=== PATIENT | female | born 1960 | race Caucasian/White ===

== ENCOUNTER → 2018-05-12 | Day surgery (SDC) | payer OTHER ==
[~2018-05-12] MED LIST: CIPRO500 MG PO; DEXILANT60 MG PO; DICYCLOMINE HCL20 MG PO; FENTANYL CITRATE/PF 100MCG/2 ML INJ ONE; LOPREEZA; MELOXICAM15 MG PO; METRONIDAZOLE500 MG PO; MIDAZOLAM HCL 2 MG/2 ML VIAL ONE; NORCO 10-325 T1 EACH PO; OR PHACO EYE KIT ONE; PANTOPRAZOLE SO40 MG PO; PREOP PHACO EYE KIT ONE; TOBRAMYCIN/DEXAMETHASONE(OPTH) 3.5 GM TUBE ONE; ULTRAM50 MG PO; VICODIN PO; [UNRECOGNIZED DRUG - MIXTURE] PO; [UNRECOGNIZED DRUG - OTHER]; [UNRECOGNIZED DRUG - OTHER]; [UNRECOGNIZED DRUG - OTHER] PO; [UNRECOGNIZED DRUG - REMARK]
[2018-05-12 12:15] VITALS: BP 112/62
== END | disposition home or self-care (01) ==
LOC: OR 09:10
PROVIDERS: ATTEND Ophthalmology
DX: H25.11 Age-related nuclear cataract, right eye (principal); J30.9 Allergic rhinitis, unspecified; K21.9 Gastro-esophageal reflux disease without esophagitis; Z88.2 Allergy status to sulfonamides
CPT/HCPCS: 66984; J2250; V2632

== ENCOUNTER → 2019-02-10 | Outpatient (CLI) | payer OTHER ==
[~2019-02-10] MED LIST changes: -FENTANYL CITRATE/PF 100MCG/2 ML INJ ONE; -MIDAZOLAM HCL 2 MG/2 ML VIAL ONE; -OR PHACO EYE KIT ONE; -PREOP PHACO EYE KIT ONE; -TOBRAMYCIN/DEXAMETHASONE(OPTH) 3.5 GM TUBE ONE
--- NOTE | 2019-02-10 17:20 | Diagnostic Imaging Report ---
Maxillofacial sinus CT without IV contrast History:Headache, pain, red eyes with inflammation Comparison studies: None Technique: Axial images were obtained through the maxillofacial region. Coronal and sagittal images reconstructed from the axial data. Dose modulation, iterative reconstruction, and/or weight based adjustment of the mA/kV was utilized to reduce the radiation dose to as low as reasonably achievable. Radiation dose: Total DLP: 288 mGy*cm. Estimated effective dose: DLP x 0.015 Intravenous contrast: None Findings: Evaluation the soft tissues is limited in the absence of IV contrast. Paranasal sinuses: Sinuses are clear. The bilateral ostiomeatal units, frontoethmoidal recesses and sphenoethmoidal recesses are patent. Nasal cavity: Nonspecific reactive nasal turbinate hypertrophy. The nasal septum is deviated to the left and there is a leftward projecting osseous spur which abuts the inferior and middle turbinates. Soft tissues: Partially imaged coarsely calcified left suprahyoid jugular chain (level IIA) measures up to 11 mm and is nonspecific but may be sequela of chronic granulomatous disease (cannot further evaluate on this exam). Dedicated soft tissue neck CT with IV contrast may further evaluate as clinically warranted. No mass or inflammatory changes identified. Bones: No fractures. Incidental nonaggressive-appearing partially imaged lucent lucent right frontal calvarium lesion measures up to at least 6 mm, possibly hemangioma. Orbits: Globes are intact. There are lens replacements for previous cataract surgery. Extraocular muscles appear symmetric in size and density. No intraconal or extraconal mass. Incidental findings: Facet arthrosis on the left at C2-C3. IMPRESSION: 1. Lens replacements for previous cataract surgery. No other gross orbital abnormalities. 2. Clear paranasal sinuses with patent sinus drainage pathways. 3. Nonspecific reactive nasal turbinate hypertrophy. 4. Incidental nonspecific partially imaged calcified left cervical lymph node. Signed by: Dr. Antonio Benedict M.D. on 02/10/2019 5:17 PM
== END ==
LOC: CT 15:44
PROVIDERS: ATTEND Ophthalmology
DX: R51 Headache (principal)
CPT/HCPCS: 70486

== ENCOUNTER → 2019-03-09 | Outpatient (CLI) | payer OTHER ==
--- NOTE | 2019-03-10 10:48 | Diagnostic Imaging Report ---
History: Cervical lesion Comparison studies: Maxillofacial CT 02/10/2019. Technique: Axial, coronal and sagittal images from the skull base to the thoracic inlet. Coronal and sagittal images reconstructed from the axial data. Dose modulation, iterative reconstruction, and/or weight based adjustment of the mA/kV was utilized to reduce the radiation dose to as low as reasonably achievable. Intravenous contrast: 150 cc of Isovue-370. Findings: Soft tissues and lymph nodes: Coarsely calcified 11 mm x 18 mm left suprahyoid jugular chain nodule, most compatible with calcified lymph node is again identified. No other radiographically significant cervical lymphadenopathy. Pharynx and larynx: No abnormalities. Specifically, no mass or abnormal enhancement. Vessels: Patent carotid and vertebral arteries. Minimal nonstenotic calcified plaque at the left carotid bulb. Internal jugular veins are patent bilaterally. Glands (thyroid, parotid and submandibular): Normal in size and symmetric. No masses. Orbits: Lens replacements for previous cataract surgery. No other abnormalities. Paranasal sinuses: Clear. Nasal cavity: Leftward nasal septal deviation with nonspecific reactive diffuse nasal turbinate hypertrophy, similar to previous exam. Temporal bones: No gross abnormalities. Skull base and facial bones: Intact. Cervical spine: Mild multilevel disc degeneration, greatest at C5-C6. Minimal retrolisthesis of C5 on C6 with associated disc osteophyte complex results in mild canal stenosis. Facet arthrosis on the left from C2 to C5 uncovertebral arthrosis at C5-C6 is not result significant canal stenosis. IMPRESSION: 1. Nonspecific coarse calcified left suprahyoid left level IIA lymph node, possibly sequela of prior granulomatous disease. 2. No other mass or cervical lymphadenopathy. Signed by: Dr. Antonio Benedict M.D. on 03/10/2019 10:45 AM
== END ==
LOC: CT 13:49
PROVIDERS: ATTEND Family Medicine
DX: N88.9 Noninflammatory disorder of cervix uteri, unspecified (principal); I65.22 Occlusion and stenosis of left carotid artery
CPT/HCPCS: 70491; 93880

== ENCOUNTER → 2019-04-29 | Outpatient (CLI) | payer OTHER ==
[~2019-04-29] MED LIST changes: +IOPAMIDOL 370 MG/ML 200 ML INFUS..BTL INJ ONE; +SODIUM CHLORIDE 0.9% 50ML 50 ML ONE
[2019-04-29 08:48] LABS: BLOOD UREA NITROGEN 12 mg/dL (7-26); BUN/CREATININE RATIO 15 (6-25); EST GLOMERULAR FILTRATION RATE > 60 ML/MIN (60-)
--- NOTE | 2019-04-29 10:01 | Diagnostic Imaging Report ---
ADDENDUM #1 RADIATION DOSE: Total DLP: 493.2 mGy*cm. Dose modulation, iterative reconstruction, and/or weight based adjustment of the mA/kV was utilized to reduce the radiation dose to as low as reasonably achievable. Signed by: Young Beal MD on 04/29/2019 2:45 PM ORIGINAL REPORT EXAM: CT Chest WITH intravenous contrast 04/29/2019 8:00 AM INDICATION: Bronchitis COMPARISON: None TECHNIQUE: Chest was scanned utilizing a multidetector helical scanner from the lung apex through the level of the adrenal glands after administration of IV contrast. Coronal and sagittal reformations were obtained. Routine protocol was performed. IV CONTRAST: 100mL Isovue 370 RADIATION DOSE: Total DLP: mGy*cm. Dose modulation, iterative reconstruction, and/or weight based adjustment of the mA/kV was utilized to reduce the radiation dose to as low as reasonably achievable. COMPLICATIONS: None FINDINGS: LINES/ TUBES: None. LUNGS AND AIRWAYS: The central airways are patent. Minimal biapical pleural parenchymal thickening/scarring. No focal consolidation. Minimal bibasilar subsegmental atelectasis. No bronchial wall thickening or bronchiectasis. No suspicious pulmonary nodules. PLEURA: The pleural spaces are clear. HEART AND MEDIASTINUM: Incompletely visualized thyroid gland appears unremarkable. No supraclavicular, subpectoral, axillary, mediastinal, or hilar lymphadenopathy. The heart is not enlarged. No pericardial effusion. This study is not specifically tailored for evaluation for pulmonary embolism, however there is no filling defect to suggest pulmonary embolism to the segmental level. UPPER ABDOMEN: Limited contrast-enhanced images of the upper abdomen demonstrate hepatic steatosis without focal mass lesions and no focal abnormality of the partially visualized spleen, pancreas, adrenals, or upper kidneys. BONES: No acute osseous injury. No suspicious lytic or blastic lesions. SOFT TISSUES: Unremarkable. IMPRESSION: No consolidation, bronchial wall thickening, or bronchiectasis. Hepatic steatosis. Signed by: Young Beal MD on 04/29/2019 9:57 AM
== END ==
LOC: CT 07:53
PROVIDERS: ATTEND Family Medicine
DX: J20.9 Acute bronchitis, unspecified (principal)
CPT/HCPCS: 36415; 71260; 82565; 84520; Q9967

== ENCOUNTER → 2020-01-03 | Day surgery (SDC) | payer OTHER ==
[~2020-01-03] MED LIST changes: +AMABELZ 1 MG-01 EACH PO; +FENTANYL CITRATE/PF 100MCG/2 ML INJ ONE; +GLUCAGON FOR INJ 1 MG VIAL ONE; +GLYCOPYRROLATE INJ 0.2 MG/ML VIAL ONE; +HYOSCYAMINE 0.125 MG TAB ONE; -IOPAMIDOL 370 MG/ML 200 ML INFUS..BTL INJ ONE; +MELOXICAM7.5 MG PO; +METHOCARBAMOL750 MG PO; +MIDAZOLAM HCL 2 MG/2 ML VIAL ONE; +PROPOFOL IV EMULSION 10 MG/ML 20 ML VIAL ONE; -SODIUM CHLORIDE 0.9% 50ML 50 ML ONE; +VITAMIN D3 PO
[2020-01-03 14:55] VITALS: BP 97/68
--- NOTE | 2020-01-03 15:01 | Operative Report ---
DATE OF PROCEDURE: 01/03/2020 SURGEON: Eris Magana MD PROCEDURE: EGD with polypectomy and biopsies and colonoscopy. INDICATION FOR GED: Dyspepsia. INDICATIONS FOR COLONOSCOPY: Surveillance colonoscopy, personal history of colon polyps. MEDICATIONS: The patient was done under MAC. Please see anesthesiologist's note. PROCEDURE IN DETAIL: With the patient in left lateral decubitus position, a flexible fiberoptic Olympus gastroscope was introduced into the esophagus under direct visualization without any difficulty. The esophagus appeared to be within normal limits. The scope was then advanced with ease into the stomach. Mucosa overlying the antrum and the body revealed some patchy erythema and frse-ty-lvyycozg edema, and biopsies were obtained sent to stain for H. pylori. Two minute hyperplastic-appearing polyps were partially excised with cold biopsy forceps on the body of the stomach. Pylorus appeared to be of normal contour and shape. It was intubated with ease and the scope was advanced all the way to the second portion of the duodenum. The scope was then withdrawn slowly and biopsies were obtained from the proximal second portion and the duodenal bulb. The scope was then withdrawn back into the stomach and retroflexed and mucosa overlying the fundus and the cardia grossly appeared to be within normal limits. The scope was then straightened out. It was subsequently withdrawn. The patient tolerated the procedure well. IMPRESSION: 1. Normal esophagus. 2. Gastritis, biopsied. Biopsies sent to stain for Helicobacter pylori. 3. Gastric polyps, hyperplastic-appearing. Body of stomach, partially excised with the cold biopsy forceps. 4. Rule out sprue. PLAN: Follow up histology. Continue Dexilant 60 mg one p.o. q.a.m. a.c. The patient was then turned around after adequate lubrication of the anal canal and flexible fiberoptic Olympus colonoscope was inserted into the rectum with ease and advanced all the way to the cecum. It was then withdrawn slowly. Mucosa overlying the cecum, ascending colon, transverse colon, descending colon appeared to be within normal limits. Diverticular disease was noted in the sigmoid colon. The rectum grossly appeared to be within normal limits. The scope was then retroflexed into the distal rectum and small internal hemorrhoids were noted, none of which was actively bleeding. The scope was then straightened out. It was subsequently withdrawn. The patient tolerated the procedure well. IMPRESSION: 1. Diverticulosis. 2. Internal hemorrhoids, none actively bleeding. PLAN: Initiate high-fiber low-fat diet. Initiate high-fiber supplement. The patient might benefit from a followup colonoscopy in 3 years. MD CALDERON Avalos/ERNESTO /[id number] cc: Rayshawn Chang DO
--- OUTSIDE RECORDS SUMMARY | 2020-01-04 09:06 | XMS REPORT | Summary of Care ---
Author Author ASHLEY Kevin, [facility] [place] Organization Unknown Address Unknown Phone Unavailable Care Team Providers Care Director Trial Name Role Phone TAYLOR RAMIREZ M.D. Unavailable Unavailable Taylor Ramirez MD Unavailable Unavailable Unavailable Unavailable Functional Status Name Dates Details Functional status health issues are not documented Status: Name Dates Details Cognitive status health issues are not d ocumented Status: Problems Name Dates Details Left foot pain (729.5, M79.672) Status: Active Limb pain (729.5, M79.609) Status: Active Metatarsalgia of right foot (726.70, M77 .41) Status: Active Metatarsalgia of both feet (726.70, M77. 41) Status: Active Sprain of anterior talofibular ligament of left ankle, initial encounter (845.09, S93.492A) Status: Active Medications Name Dates Details Meloxicam 15 MG Oral Tablet TAKE 1 TABLET BY MOUTH DAILY Quantity: 90 ASHLEY Kevin, TAYLOR * Start : 07-Dec-2018 Active methylPREDNISolone 4 MG Oral Tablet USE DIRECTED. * Quantity: 21 Refills: 0 ASHLEY Kevin, TAYLOR * Start : 07-Dec-2018 Active Allergies and Adverse Reactions Name Dates Details Allergy history not documented Status: Procedures Procedure Dates Details MR Ankle wo contrast [id number] Date: 03-Feb-2019 Immunization Name Dates Details Immunizations not documented Social History Name Dates Details Unknown if ever smoked Vital Signs Date Test Result Details No Known Vitals to report Results Date Description Value Details Results not documented Plan of Care Name Dates Details Planned Observations Planned Goals not documented Planned Encounters Appointment; TAYLOR RAMIREZ M.D. On: 15-Feb-2019 11:00 Interventions Provided Labs/Procedures/Imaging* MR Ankle wo contrast [id number]; To Be Done: 03 Feb 2019 Instructions Name Dates Details Instructions not documented Encounters Appointment; TAYLOR RAMIREZ M.D. Encounter Diagnosis: Problem not documented On: 07-Dec-2018 9:30 Appointment; TAYLOR RAMIREZ M.D. Encounter Diagnosis: Problem not documented On: 18-Jan-2019 10:15 Appointment; TAYLOR RAMIREZ M.D. Encounter Diagnosis: Problem not documented On: 03-Feb-2019 14:00
--- OUTSIDE RECORDS SUMMARY | 2020-01-04 09:07 | XMS REPORT ---
Author Author [facility] t Organization [facility] Address [address] [place] [address] Phone Unavailable Care Team Providers Care Hand Router Operator Name Role Phone Shantelle Montaño Attphys EVE GAYTAN Attphys Unavailable TAYLOR WELSH M.D. Attphys Unavailable Aura Welsh Attphys BERNARD GODFREY Attphys Unavailable Miesha Davis Attphys Justice Robles Attphys Lou Muse Attphys Chauncey Martinez Attphys JAYE MONSIVAIS Attphys Unavailable David Norris Santos Attphys Omid Sorto Attphys Shantelle Montaño Admphys Justice Robles Admphys David Norris Santos Admphys Payers Payer Name Policy Type Policy Number Effective Date Expiration Date S ource Problems Condition Name Condition Details Condition Category Status Onset Date Resolution Date Last Treatment Date Treating Clinician Comments Source Left foot pain Left foot pain Problem Active [facility] Limb pain Limb pain Problem Active [facility] Metatarsalgia of both feet Metatarsalgia of both feet Problem Active [facility] Sprain of anterior talofibular ligament of left ankle, initial encounter Sprain of anterior talofibular ligament of left ankle, initial encounter Problem Active [facility] Left ankle pain Left ankle pain Problem Active [facility] Allergies, Adverse Reactions, Alerts Allergy Name Allergy Type Status Severity Reaction(s) Onset Date Inacti ve Date Treating Clinician Comments Source Sulfa (Sulfonamide Antibiotics) DA Active U 2017-10-09 00 :00:00 [facility] Medications Ordered Medication Name Filled Medication Name Start Date Stop Da te Current Medication? Ordering Clinician Indication Dosage Frequency Signature (SIG) Comments Components Source Meloxicam 15 MG Oral Tablet Meloxicam 15 MG Oral Tablet 2018-12-07 00:00:00 Yes TAYLOR WELSH M.D. TAKE 1 TABLET BY MOUTH DILMA Y [facility] methylPREDNISolone 4 MG Oral Tablet methylPREDNISolone 4 MG Oral Tablet 2018-12-07 00:00:00 Yes TAYLOR WELSH M.D. USE DIRECTED. [facility] Procedures Procedure Date / Time Performed Performing Clinician [facility] e MR Ankle wo contrast [id number] 2019-02-03 00:00:00 U [facility] [U] XR FOOT MIN 3 VWS BILATERAL 2018-12-07 00:00:00 [facility] Encounters Start Date/Time End Date/Time Encounter Type Admission Type Attendi [facility] Care Department Encounter ID Source 2019-07-21 05:30:11 2019-07-21 08:33:00 Outpatient Brendan Montaño [id number] [facility] 2019-02-15 11:00:00 2019-02-15 11:00:00 Appointment; RAVI WELSH M.D. GAUVAIN, TAGGART, M.D. [facility] Orthopedics [facility] [id number] [facility] 2019-02-10 12:03:00 2019-02-10 23:59:00 Outpatient Taylor Welsh [facility] [id number] [facility] [place] 2019-02-03 14:00:00 2019-02-03 14:00:00 Appointment; RAVI WELSH M.D. GAUVAIN, TAGGART, M.D. [facility] Orthopedics [facility] [id number] [facility] 2019-01-28 11:51:21 2019-01-28 14:09:00 Outpatient Dea Davis [facility] [id number] [facility] 2019-01-28 11:51:00 2019-01-28 11:51:00 Emergency E [facility]BL [facility]BL [id number] [facility] 2019-01-18 10:15:00 2019-01-18 10:15:00 Appointment; RAVI WELSH M.D. GAUVAIN, TAGGART, M.D. [facility] [id number] [facility] 2018-11-27 08:00:00 2018-12-26 23:59:00 Outpatient Clarissa Robles [id number] [facility] 2018-12-07 09:30:00 2018-12-07 09:30:00 Appointment; RAVI WELSH M.D. GAUVAIN, TAGGART, M.D. [facility] Orthopedics [facility] [id number] [facility] 2018-10-27 08:00:00 2018-11-25 23:59:00 Outpatient Clarissa Robles [id number] [facility] 2018-09-25 08:00:00 2018-10-25 23:59:00 Outpatient Clarissa Robles [id number] [facility] [place] 2018-09-22 05:25:00 2018-09-24 16:56:00 Outpatient RoblesHardeep cruz [facility] [id number] [facility] 2018-09-22 05:25:00 2018-09-24 16:56:00 Outpatient Hardeep Robles [facility] [id number] [facility] 2018-04-27 13:00:00 2018-05-26 23:59:00 Outpatient Clarissa Robles [id number] [facility] 2018-05-18 11:13:00 2018-05-19 23:59:59 Outpatient MHMIS REKHA MHMISCHER [id number] [facility] 2018-04-02 05:27:00 2018-04-02 10:05:00 Outpatient Hardeep Robles [facility] [id number] [facility] 2018-04-01 22:05:00 2018-04-01 23:59:00 Outpatient Lou Carrion [facility] [id number] [facility] 2018-02-08 21:11:00 2018-02-08 23:59:00 Outpatient Hardeep Robles [facility] MHSE [id number] [facility] 2017-11-03 11:45:00 2017-11-03 15:58:00 Outpatient Myles Martinez [facility] [id number] [facility] 2017-07-18 15:50:00 2017-08-16 23:59:00 Outpatient Clarissa Robles [id number] [facility] 2017-06-04 15:59:00 2017-07-03 23:59:00 Outpatient Clarissa Robles [id number] [facility] 2017-04-28 09:00:00 2017-05-27 23:59:00 Outpatient Robles, V ictor Van [id number] [facility] 2017-04-29 06:46:00 2017-04-30 14:30:00 Outpatient JrSantosflori [facility] [id number] [facility] 2017-03-28 16:00:00 2017-04-26 23:59:00 Outpatient Robles, V ictor Van [id number] [facility] 2017-02-24 16:00:00 2017-03-25 23:59:00 Outpatient Robles, V ictor Van [id number] [facility] 2017-01-15 13:30:00 2017-02-13 23:59:00 Outpatient Robles, V ictor Van [id number] [facility] 2015-12-27 10:40:00 2015-12-27 13:20:00 Outpatient Shania Sorto [facility] [id number] [facility] 2015-07-21 08:00:00 2015-08-19 23:59:00 Outpatient Robles, V ictor Van [id number] [facility] 2015-06-19 08:00:00 2015-07-18 23:59:00 Outpatient Robles, V ictor Van [id number] [facility] liu 2015-05-19 08:00:00 2015-06-17 23:59:00 Outpatient Clarissa Robles [id number] [facility] 2015-05-02 11:30:00 2015-05-17 10:05:00 Outpatient Clarissa Robles [id number] [facility] liu 2015 06:55:00 2015-04-28 18:00:00 Outpatient Hardeep Robles [facility] [id number] [facility] Results Test Description Test Time Test Comments Results Result Comments Source CT CHEST W 2019-04-29 09:51:00 [place] [address] Patient Name: LAVONNE BURGOS MR #: [id number] : 1960 Age/Sex: 59/F Req #: [id number] Adm Physician: Ordered by: EEV GAYTAN DO Report #: [id number] Location: CT Room/Bed: Procedure: [id number] CT/CT CHEST W Exam Date: 04/29/19 Exam Time: 0900 REPORT STATUS: Signed ADDENDUM #1 RADIATION DOSE: Total DLP: 493.2 mGy*cm. Dose modulation, iterative reconstruction, and/or weight based adjustment of the mA/kV was utilized to reduce the radiation dose to as low as reasonably achievable. Signed by: Crystal Herring MD on 04/29/2019 2:45 PM ORIGINAL REPORT EXAM: CT Chest WITH intravenous contrast 04/29/2019 8:00 AM INDICATION: Bronchitis COMPARISON: None TECHNIQUE: Chest was scanned utilizing a multidetector helical scanner from the lung apex through the level of the adrenal glands after administration of IV contrast. Coronal and sagittal reformations were obtained. Routine protocol was performed. IV CONTRAST: 100mL Isovue 370 RADIATION DOSE: Total DLP: mGy*cm. Dose modulation, iterative reconstruction, and/or weight based adjustment of the mA/kV was utilized to reduce the radiation dose to as low as reasonably achievable. COMPLICATIONS: None FINDINGS: LINES/ TUBES: None. LUNGS AND AIRWAYS: The central airways are patent. Minimal biapical pleural parenchymal thickening/scarring. No focal consolidation. Minimal bibasilar subsegmental atelectasis. No bronchial wall thickening or bronchiectasis. No suspicious pulmonary nodules. PLEURA: The pleural spaces are clear. HEART AND MEDIASTINUM: Incompletely visualized thyroid gland appears unremarkable. No supraclavicular, subpectoral, axillary, mediastinal, or hilar lymphadenopathy. The heart is not enlarged. No pericardial effusion. This study is not specifically tailored for evaluation for pulmonary embolism, however there is no filling defect to suggest pulmonary embolism to the segmental level. UPPER ABDOMEN: Limited contrast-enhanced images of the upper abdomen demonstrate hepatic steatosis without focal mass lesions and no focal abnor mality of the partially visualized spleen, pancreas, adrenals, or upper kidneys. BONES: No acute osseous injury. No suspicious lytic or blastic lesions. SOFT TISSUES: Unremarkable. IMPRESSION: No consolidation, bronchial wall thickening, or bronchiectasis. Hepatic steatosis. Signed by: Crystal Herring MD on 04/29/2019 9:57 AM Dictated By: CRYSTAL HERRING MD 1445 Transcribed By: JOYCE on 04/29/19 2864 COPY TO: EVE GAYTNA DO CT SOFT TISSUE NECK W 2019-03-10 10:23:00 [facility] [address] [address] Patient Name: LAVONNE BURGOS MR #: [id number] : 1960 Age/Sex: 58/F Req #: [id number] Adm Physician: Ordered by: EVE GAYTAN DO Report #: [id number] Location: CT Room/Bed: Procedure: [id number] CT/CT SOFT TISSUE NECK W Exam Date: 03/09/19 Exam Time: 1430 REPORT STATUS: Signed History: Cervical lesion Comparison studies: Maxillofacial CT 02/10/2019. Technique: Axial, coronal and sagittal images from the skull base to the thoracic inlet. Coronal and sagittal images reconstructed from the axial data. Dose modulation, iterative reconstruction, and/or weight based adjustment of the mA/kV was utilized to reduce the radiation dose to as low as reasonably achievable. Intravenous contrast: 150 cc of Isovue-370. Findings: Soft tissues and lymph nodes: Coarsely calcified 11 mm x 18 mm left suprahyoid jugular chain nodule, most compatible with calcified lymph node is again identified. No other radi ographically significant cervical lymphadenopathy. Pharynx and larynx: No abnormalities. Specifically, no mass or abnormal enhancement. Vessels: Patent carotid and vertebral arteries. Minimal nonstenotic calcified plaque at the left carotid bulb. Internal jugular veins are patent bilaterally. Glands (thyroid, parotid and submandibular): Normal in size and symmetric. No masses. Orbits: Lens replacements for previous cataract surgery. No other abnormalities. Paranasal sinuses: Clear. Nasal cavity: Leftward nasal septal deviation with nonspecific reactive diffuse nasal turbinate hypertrophy, similar to previous exam. Temporal bones: No gross abnormalities. Skull base and facial bones: Intact. Cervical spine: Mild multilevel disc degeneration, greatest at C5-C6. Minimal retrolisthesis of C5 on C6 with associated disc osteophyte complex results in mild canal stenosis. Facet arthrosis on the left from C2 to C5 uncovertebral arthrosis at C5-C6 is not result significant canal stenosis. IMPRESSION: 1. Nonspecific coarse calcified left suprahyoid left level IIA lymph node, possibly sequela of prior granulomatous disease. 2. No other mass or cervical lymphadenopathy. Signed by: Dr. Herrera Ramirez M.D. on 03/10/2019 10:45 AM Dictated By: HERRERA RAMIREZ MD 44 Transcribed By: JOYCE on 03/10/191044 COPY TO: EVE GAYTAN DO CT MAXIO FAC/PARANAS WO 2019-02-10 17:05:00 [place] [address] Patient Name: LAVONNE BURGOS MR #: [id number] : 1960 Age/Sex: 58/F Req #: [id number] Adm Physician: Ordered by: BERNARD GODFREY MD Report #: [id number] Location: CT Room/Bed: Procedure: [id number] CT/CT MAXIO FAC/PARANAS WO Exam Date: Exam Time: REPORT STATUS: Signed Maxillofacial sinus CT without IV contrast History:Headache, pain, red eyes with inflammation Comparison studies: None Technique: Axial images were obtained through the maxillofacial region. Coronal and sagittal images reconstructed from the axial data. Dose modulation, iterative reconstruction, and/or weight based adjustment of the mA/kV was utilized to reduce the radiation dose to as low as reasonably achievable. Radiation dose: Total DLP: 288 mGy*cm. Estimated effective dose: DLP x 0.015 Intravenous contrast: None Findings: Evaluation the soft tissues is limited in the absence of IV contrast. Paranasal sinuses: Sinuses are clear. The bilateral ostiomeatal units, frontoethmoidal recesses and sphenoethmoidal recesses are patent. Nasal cavity: Nonspecific reactive nasal turbinate hypertrophy. The nasal septum is deviated to the left and there is a leftward projecting osseous spur which abuts the inferior and middle turbinates. Soft tissues: Partially imaged coarsely calcified left suprahyoid jugular chain (level IIA) measures up to 11 mm and is nonspecific but may be sequela of chronic granulomatous disease (cannot further evaluate on this exam). Dedicated soft tissue neck CT with IV contrast may further evaluate as clinically warranted. No mass or inflammatory changes identified. Bones: No fractures. Incidental nonaggressive-appearing partially imaged lucent lucent right frontal calvarium lesion measures up to at least 6 mm, possibly hemangioma. Orbits: Globes are intact. There are lens replacements for previous cataract surgery. Extraocular muscles appear symmetric in size and density. No intraconal or extraconal mass. Incidental findings: Facet arthrosis on the left at C2- C3. IMPRESSION: 1. Lens replacements for previous cataract surgery. No other gross orbital abnormalities. 2. Clear paranasal sinuses with patent sinus drainage pathways. 3. Nonspecific reactive nasal turbinate hypertrophy. 4. Incidental nonspecific partially imaged calcified left cervical lymph node. Signed by: Dr. Herrera Ramirez M.D. on 02/10/2019 5:17 PM Dictated By: HERRERA RAMIREZ MD 16 Transcribed By: JOYCE on 02/10/191716 COPY TO: BERNARD GODFREY MD MR Ankle wo contrast [id number] 2019-02-10 13:01:00 E XAMINATION: MR left ankle without contrastHISTORY: S93.492A Sprain of other ligament of left ankle, initial encounter;lateral left ankle pain x 1 monthCOMPARISON: Radiographs dated 01/28/2019 are reviewed.TECHNIQUE: Multiplanar, multisequence magnetic resonance imaging of the leftankle and hindfoot is performed with an extremity coil without contrast. AnMR-compatible marker is placed at the site of the patient's pain.FINDINGS:Ligaments:Lateral:AITFL and PITFL: The anterior/inferior tibiofibular and posterior/inferiortibiofibular syndesmotic ligaments are intact.ATFL: The anterior talofibular ligament is intact.CFL: The calcaneofibular ligament is intact.Medial:Deltoid complex: The superficial and deep components of the deltoid ligamentcomplex including the tibiospring ligament and superomedial component of thecalcaneonavicular spring ligament are within normal limits. Tendons:Medial flexor: Fluid is noted within the posterior tibialis tendon sheathwithout intratendinous abnormality. Otherwise, the remaining medial flexortendons are within normal limits.Peroneal: The lateral peroneal tendons are within normal limits.Extensor: The anterior ankle extensor tendons are within normal limits.Achilles tendon: The Achilles tendon is within normal limits.Plantar fascia: Within normal limits.Muscles: There is normal signal intensity and muscle bulk of the intrinsic footmusculature.Cartilage: There is no focal chondrosis or subchondral marrow edema. Noosteochondral defects.Bone: There is minimal marrow edema within the far lateral aspect of thelateral malleolus versus mild loss of fat suppression within this region(series 2, image 18 and series 4, image 15). The bone marrow signal intensityis otherwise normal without evidence of acute fracture or osteonecrosis. Thereis a small os trigonum.Soft tissue: There is a small amount of fluid within the posterior aspect ofthe tibiotalar joint and small amount of fluid within the posterior subtalarjoint, likely within physiologic limits. There is normal fatty signal withinthe sinus Tarsi.IMPRESSION:1. Minimal marrow edema within the far lateral aspect of the left lateralmalleolus, possibly representing an osseous contusion, versus mild loss of fatsuppression within this region.2. Nonspecific small amount of fluid within the posterior aspect of the lefttibiotalar joint and small amount of fluid within the left posterior subtalarjoint, likely within physiologic limits. There is a small os trigonum.3. Otherwise, unremarkable MR examination of the left ankle. Specifically, theperoneal tendons demonstrate normal signal and morphology without evidence of peroneal tenosynovitis and there is normal fatty signal within the sinus Tarsiwithout MR evidence of sinus Tarsi syndrome, underlying the MR- compatiblemarker placed at the site of the patient's pain.--Read by: Jt Edwards MDDictated Date/time: 02/11/19 07:56Electronically Signed by: Jt Edwards MD 02/11/1909:27FINAL REPORT [facility] [U] XR FOOT MIN 3 VWS BILATERAL 2018-12-07 10:40:00 Images acquired, not reported on this accession number. [facility] SMALL BOWEL SERIES [place] [address] Patient Name: LAVONNE BURGOS MR #: [id number] : 1960 Age/Sex: 57/F Req #: [id number] Adm Physician: Ordered by: JAYE MONSIVAIS MD Report #: [id number] Location: DX Room/Bed: Procedure: [id number] DX/SMALL BOWEL SERIES Exam Date: Exam Time: REPORT STATUS: Signed PROCEDURE: SMALL BOWEL SERIES INDICATION: Gastroenteritis; abdominal pain. COMPARISON: None. TECHNIQUE: Routine single contrast small bowel follow-through. Fluoroscopy time: 0.7 minutes. Cumulative air kerma: 16.42 mGy FINDINGS: Steam Tank Operator: Normal Small bowel caliber, mucosal contour and transit time (90 minutes) are normal. No evidence of stricture, mass or ulcer. CONCLUSION: Normal small bowel follow-through. Dictated by: Lana Quiñones M.D. on 06/02/2017 at 11:21 Electronically approved by: Lana Quiñones M.D. on 06/02/2017 at 11:21 Dictated By: LANA QUIÑONES MD 1121 Transcribed By: CRISTINE on 06/02/17 1121 COPY TO: JAYE MONSIVAIS MD
--- OUTSIDE RECORDS SUMMARY | 2020-01-04 09:07 | XMS REPORT | Summary of Care ---
Author Author LAVONNE Kumari M.A. Organization Unknown Address Unknown Phone Unavailable Care Team Providers Care Advertising Vice President Name Role Phone TAYLOR WELSH M.D. Unavailable Unavailable Taylor Welsh MD Unavailable Unavailable Unavailable Unavailable Functional Status [...] ankle, initial encounter (845.09, S93.492A) Status: Active Left ankle pain (719.47, M25.572) Status: Active Medications Name Dates Details Meloxicam 15 MG Oral Tablet TAKE 1 TABLET BY MOUTH DAILY Quantity: 90 GAUVAIN M.D., TAYLOR * Start : 07-Dec-2018 Active methylPREDNISolone 4 MG Oral Tablet USE DIRECTED. * Quantity: 21 Refills: 0 GAUVAIN M.D., TAYLOR * Start : 07-Dec-2018 Active Allergies and Adverse Reactions Name Dates Details Allergy history not documented Status: Procedures Procedure Dates Details Procedures not documented Immunization Name Dates Details Immunizations not documented Social History Name Dates Details Unknown if ever smoked Vital Signs Date Test Result Details No Known Vitals to report Results Date Description Value Details [id number] MR Ankle wo contrast [id number] Ankle wo contrast MR SEE NOTES Comments: E XAMINATION: MR left ankle without contrastHISTORY: S93.492A Sprain of other ligament of left ankle, initial encounter;lateral left ankle pain x 1 monthCOMPARISON: Radiographs dated 01/28 are reviewed.TECHNIQUE: Multiplanar, multisequence magnetic resonance imaging [...] Signed by: Jt Edwards MD 02/11/1909:27FINAL REPORT Plan of Care Name Dates Details Planned Observations Planned Goals not documented Instructions Name Dates Details Instructions not documented Encounters Appointment; TAYLOR WELSH M.D. Encounter Diagnosis: Problem not documented On: 07-Dec-2018 9:30 Appointment; TAYLOR WELSH M.D. Encounter Diagnosis: Problem not documented On: 18-Jan-2019 10:15 Appointment; TAYLOR WELSH M.D. Encounter Diagnosis: Problem not documented On: 03-Feb-2019 14:00 Appointment; TAYLOR WELSH M.D. Encounter Diagnosis: Problem not documented On: 15-Feb-2019 11:00
== END | disposition home or self-care (01) ==
LOC: OR 09:53
PROVIDERS: ATTEND Internal Medicine Gastroenterology
DX: K29.50 Unspecified chronic gastritis without bleeding (principal); Z86.010 Personal history of colon polyps; K31.7 Polyp of stomach and duodenum; K29.60 Other gastritis without bleeding; K20.8 Other esophagitis; K21.9 Gastro-esophageal reflux disease without esophagitis; K58.9 Irritable bowel syndrome, unspecified; K57.30 Diverticulosis of large intestine without perforation or abscess without bleeding; K64.8 Other hemorrhoids; Z88.2 Allergy status to sulfonamides; Z01.810 Encounter for preprocedural cardiovascular examination; Z01.812 Encounter for preprocedural laboratory examination; Z11.59 Encounter for screening for other viral diseases
CPT/HCPCS: 43239; 45378; 87635; 93005; J1610; J2250; J2704; J3010

== ENCOUNTER → 2020-09-19 | Outpatient (CLI) | payer OTHER ==
[~2020-09-19] MED LIST changes: -FENTANYL CITRATE/PF 100MCG/2 ML INJ ONE; -GLUCAGON FOR INJ 1 MG VIAL ONE; -GLYCOPYRROLATE INJ 0.2 MG/ML VIAL ONE; -HYOSCYAMINE 0.125 MG TAB ONE; -MIDAZOLAM HCL 2 MG/2 ML VIAL ONE; -PROPOFOL IV EMULSION 10 MG/ML 20 ML VIAL ONE
== END ==
LOC: MRI 10:12
PROVIDERS: ATTEND Orthopaedic Surgery
DX: M54.12 Radiculopathy, cervical region (principal); M50.320 Other cervical disc degeneration, mid-cervical region, unspecified level
CPT/HCPCS: 72141

== ENCOUNTER → 2021-09-17 | Outpatient (CLI) | payer OTHER | LOC: CT 11:57 | PROVIDERS: ATTEND Family Medicine | DX: R33.8 Other retention of urine (principal); R10.2 Pelvic and perineal pain; R31.29 Other microscopic hematuria; R39.89 Other symptoms and signs involving the genitourinary system | CPT/HCPCS: 74176 ==

== ENCOUNTER → 2023-09-01 | Outpatient (REF) | payer OTHER ==
[~2023-09-01] MED LIST changes: +CELEBREX200 MG PO; +OXYBUTYNIN CHLOR5 MG PO; +PROTONIX20 MG PO
== END ==
LOC: US 07:28
PROVIDERS: ATTEND Nurse Practitioner
DX: R10.84 Generalized abdominal pain (principal); R19.7 Diarrhea, unspecified
CPT/HCPCS: 76700; 76856